=== PATIENT | female | born 2000 | race Caucasian/White ===

== ENCOUNTER 2023-11-22 20:54 | Emergency (ER) | payer MEDICAID ==
[~2023-11-22] VITALS: Ht 160 cm; Wt 48.0 kg
[2023-11-22 21:01] VITALS: O2SAT 99
[2023-11-22 21:34] LABS: CLARITY URINE CLOUDY (CLEAR); COLOR URINE YELLOW (YELLOW); GLUCOSE URINE NEGATIVE (NEGATIVE); KETONES URINE NEGATIVE (NEGATIVE); LEUKOCYTE ESTERASE URINE NEGATIVE (NEGATIVE); NITRITE URINE NEGATIVE (NEGATIVE); OCCULT BLOOD URINE 3+ (NEGATIVE); PH URINE 5.5 (4.5-8.0); PROTEIN URINE 1+ (NEGATIVE); SPECIFIC GRAVITY URINE 1.029 (1.005-1.030)
[2023-11-22 21:44] LABS: BACTERIA URINE 3+; SQUAMOUS EPITHELIAL CELL URINE 2+ /lpf (RARE/1+); WBC URINE 0-2 /hpf (0-2)
[2023-11-22] MEDS: KETOROLAC 15MG/ML VIAL IM ONE (22:00)
[2023-11-22] MEDS ORDERED: LIDO700A15 TP (22:38)
[2023-11-22] MEDS ORDERED: NAPR-1176 MT (22:38)
[2023-11-22 23:00] VITALS: BP 121/68; PULSE 75; RESP 16; TEMP 36.94740; O2SAT 100
== END 2023-11-22 23:00 | disposition home or self-care (01) ==
LOC: ER 20:54
DX: R10.2 Pelvic and perineal pain (principal); Z79.1 Long term (current) use of non-steroidal anti-inflammatories (NSAID); V49.49XA Driver injured in collision with other motor vehicles in traffic accident, initial encounter; Y93.55 Activity, bike riding; Y92.89 Other specified places as the place of occurrence of the external cause; Y99.8 Other external cause status
CPT/HCPCS: 99285; 76830; 76856; 81003; 81025; 96372; J1885